=== PATIENT | female | born 1980 ===

== ENCOUNTER 2020-02-11 06:20 | Day surgery (SDC) | payer OTHER ==
[2020-02-11] MEDS ORDERED: PERCOCET 5-3251 EACH PO (09:43)
== END 2020-02-11 11:40 | disposition home or self-care (01) ==
LOC: CIR.AMB 06:20
PROVIDERS: ATTEND Obstetrics & Gynecology
DX: Z30.2 Encounter for sterilization (principal); Z20.828 Contact with and (suspected) exposure to other viral communicable diseases